=== PATIENT | male | born 1960 | race Caucasian/White ===

== ENCOUNTER 2018-01-08 17:07 | Emergency (ER) | payer SELFPAY ==
[~2018-01-08] VITALS: Ht 180.3 cm; Wt 81.6 kg
[2018-01-08 17:29] VITALS: BP 140/72
== END 2018-01-08 19:06 | disposition home or self-care (01) ==
LOC: ER 17:10
DX: K12.2 Cellulitis and abscess of mouth (principal); G20 Parkinson's disease; Z88.0 Allergy status to penicillin; Z60.2 Problems related to living alone
CPT/HCPCS: A4606; Z7502; Z7610